=== PATIENT | male | born 1995 | race Caucasian/White ===

== ENCOUNTER 2022-09-16 | Emergency (ER) | payer OTHER ==
[~2022-09-16] VITALS: Ht 175.3 cm; Wt 80.3 kg
[2022-09-16 00:38] VITALS: BP 116/73
--- NOTE | 2022-09-16 00:45 | NUR ---
pt to lobby
--- NOTE | 2022-09-16 00:52 | NUR ---
PT TAKEN TO RADIOLOGY
--- NOTE | 2022-09-16 02:19 | NUR ---
27 yo m bib self with c/c of 7/10 left hand pain s/p tree branch hit hand while working x4days. +swelling. limited rom d/t pain. pt denies taking medication for pain. denies hx, rx and allergies
[2022-09-16] MEDS ORDERED: IBUP-2213 PO (02:41)
[2022-09-16] MEDS ORDERED: ACET-8386 PO (02:41)
[2022-09-16 02:57] VITALS: BP 112/78
--- NOTE | 2022-09-16 02:57 | NUR ---
Patient discharged with v/s stable. Written and verbal after care instructions given and explained. Patient alert, oriented and verbalized understanding of instructions. Ambulatory with steady gait. All questions addressed prior to discharge. ID band removed. Patient advised to follow up with PMD. Rx of ibuprofen and norco given. Patient educated on indication of medication including possible reaction and side effects. Opportunity to ask questions provided and answered.
== END 2022-09-16 02:57 | disposition home or self-care (01) ==
LOC: MED
DX: S62.347A Nondisplaced fracture of base of fifth metacarpal bone, left hand, initial encounter for closed fracture (principal); W20.8XXA Other cause of strike by thrown, projected or falling object, initial encounter; Y93.89 Activity, other specified; Y92.89 Other specified places as the place of occurrence of the external cause; Y99.8 Other external cause status
CPT/HCPCS: 73130; 99283